=== PATIENT | male | born 1990 | race Caucasian/White ===

== ENCOUNTER 2018-08-24 06:35 | Emergency (ER) | payer SELFPAY ==
[2018-08-24] MEDS ORDERED: Sodium Chloride 0.9% 1,000 ML IV STA (07:14)
[2018-08-24] MEDS ORDERED: Lidocaine 1% Inj (20ml) SC STA (07:14)
[2018-08-24 07:18] VITALS: RESP 18; TEMP 97.6
--- NOTE | 2018-08-24 07:18 | ED PDOC ---
Arrival/HPI - General Chief Complaint: Finger,Hand,&Wrist Time Seen by Provider: 08/24/18 07:05 Historian: Patient - History of Present Illness Narrative History of Present Illness (Text): 08/24/18 07:10 A 27 year old male, whose past medical history includes type 2 diabetes (diet controlled, noncompliant with Metformin), presents to the emergency department complaining of left thumb pain since 1 1/2 week ago. Patient reports he noticed pain his left hand almost 2 weeks ago and went to [facility] for symptoms on August 18. Patient states he was prescribed antibiotics, Bactrim, and was advised to return should symptoms persist. Patient returned to [facility] for persisting symptoms, August 20, and had his left thumb wound was pricked with no pus drainage. He was advised to continue antibiotics and return to the ED if it begins to swell. Patient also notes he was prescribed Metformin around 3 years ago but was unable to obtain it due to his lack of insurance at that time. Patient denies any fever, chills, myalgia, or any other complaints. PMD: None Time/Duration: < week (1 1/2 week) Symptom Onset: Gradual Symptom Course: Unchanged Activities at Onset: Light Context: Home Past Medical History - Provider Review Nursing Documentation Reviewed: Yes - Endocrine/Metabolic Hx Endocrine Disorders: Yes Hx Diabetes Mellitus Type 2: Yes - Psychiatric Hx Substance Use: No Family/Social History - Physician Review Nursing Documentation Reviewed: Yes Family/Social History: No Known Family HX Smoking Status: Never Smoked Hx Alcohol Use: No Hx Substance Use: No Allergies/Home Meds Allergies/Adverse Reactions: Allergies No Known Allergies Allergy (Verified 08/24/18 06:50) Home Medications: Home Meds Medication Instructions Recorded Confirmed Sulfamethoxazole/Trimethoprim 1 tab PO BID 08/24/18 08/24/18 [Bactrim DS 800 mg-160 mg] Review of Systems - Physician Review All systems were reviewed & negative as marked: Yes - Review of Systems Constitutional: absent: Fevers, Other (chills) Musculoskeletal: Other (left thumb pain). absent: Myalgias Physical Exam Vital Signs Reviewed: Yes Vital Signs Temp Pulse Resp BP Pulse Ox 08/24/18 06:51 97.6 F 95 H 18 136/87 98 Temperature: Afebrile Blood Pressure: Normal Pulse: Regular Respiratory Rate: Normal Appearance: Positive for: Well-Appearing, Non-Toxic Pain Distress: Mild Mental Status: Positive for: Alert and Oriented X 3 Finger Stick Blood Glucose: 370 - Systems Exam Head: Present: Atraumatic, Normocephalic Pupils: Present: PERRL Extroacular Muscles: Present: EOMI Conjunctiva: Present: Normal Respiratory/Chest: Present: Clear to Auscultation, Good Air Exchange. No: Respiratory Distress, Accessory Muscle Use Cardiovascular: Present: Tachycardic Abdomen: No: Tenderness, Distention, Peritoneal Signs Upper Extremity: Present: NORMAL PULSES, Swelling (Swelling to left thumb), E rythema (erythema to left thumb), Other (Paronychia on left thumb, pus noted, fluctuant, no streaking, no axonal polyneuropathy) Lower Extremity: Present: Normal Inspection. No: Edema Neurological: Present: GCS=15, CN II-XII Intact, Speech Normal, Motor Func Grossly Intact, Normal Sensory Function Skin: Present: Warm, Dry, Normal Color. No: Rashes Psychiatric: Present: Alert, Oriented x 3, Normal Insight, Normal Concentration Medical Decision Making ED Course and Treatment: 08/24/18 07:15 Impression: 27 year old male presenting to the emergency room complaining of left thumb pain Dx: Paronychia Plan: -- BMP -- Magnesium -- CBC -- Lidocaine 1% -- IV fluids -- Reassess and disposition Progress Notes: 08/24/18 07:20 Procedure: Incision & Drainage of Paronychia with Digit Block Performed by the emergency provider Indication: Abscess Location: Left thumb Preparation: The area was prepped and draped in the usual sterile fashion and was cleansed. Local infiltration of Lidocaine 1% without epi as digit block was used for anesthesia. 2ml of lidocaine without epi used. Procedure: The most fluctuant portion of the abscess was incised with a #12 scalpel. Approximately 1 mL of pus was obtained. The abscess was packed with 1/4 inch iodoform gauze. A dressing was applied by the emergency provider. Post-Procedure: On exam the abscess is notably less fluctuant. The patient tolerated the procedure well, and there were no complications. Cultured: No The patient's hyperglycemia was evaluated with blood work. No evidence of DKA upon review of blood work. Given NS IV 1 Liter for glucose with improvement. See Finger sticks noted. Patient was given education on diabetes and treatment with Metformin. He was given risks if he does not control his glucose levels. He is due for his next dose of Bactrim at 12 and has the medications with him so he will take them as scheduled. I gave him additional 7 days of treatment with Bactrim since the finger was improving on this treatment. The I&D plus bactrim will complete the treatment. He needs to return to the ED 2 days from now for a wound check. He was advised to return sooner if symptoms worsen, fever, redness develops on his arm or any other concern. - Scribe Statement The provider has reviewed the documentation as recorded by the Alie Chávez All medical record entries made by the Scribe were at my direction and personally dictated by me. I have reviewed the chart and agree that the record accurately reflects my personal performance of the history, physical exam, medical decision making, and the department course for this patient. I have also personally directed, reviewed, and agree with the discharge instructions and disposition. Disposition/Present on Arrival - Present on Arrival Any Indicators Present on Arrival: Yes History of DVT/PE: No History of Uncontrolled Diabetes: Yes Urinary Catheter: No History of Decub. Ulcer: No History Surgical Site Infection Following: None - Disposition Have Diagnosis and Disposition been Completed?: Yes Diagnosis: Paronychia, Hyperglycemia Disposition: HOME/ ROUTINE Disposition Time: 09:05 Patient Plan: Discharge Condition: IMPROVED Discharge Instructions (ExitCare): Paronychia, Hyperglycemia, Adult Additional Instructions: PAULO ALBARRAN, thank you for letting us take care of you today. Your provider was Juan M Morrissey DO and you were treated for Left Thumb Paronychia, Diabetes/Hyperglycemia. The emergency medical care you received today was directed at your acute symptoms. If you were prescribed any medication, please fill it and take as directed. It may take several days for your symptoms to resolve. Return to the Emergency Department if your symptoms worsen, do not improve, or if you have any other problems. PLEASE RETURN TO THE EMERGENCY DEPARTMENT IN 2 DAYS FOR A WOUND CHECK. CONTINUE TO TAKE YOUR ANTIBIOTICS PRESCRIBED AND ADDITIONAL ANTIBIOTICS PRESCRIBED BY ME. Please contact your doctor or call one of the physicians/clinics you have been referred to that are listed on the Patient Visit Information form that is included in your discharge packet. Bring any paperwork you were given at discharge with you along with any medications you are taking to your follow up visit. Our treatment cannot replace ongoing medical care by a primary care provider outside of the emergency department. Thank you for allowing the [facility] team to be part of your care today. If you had an X-Ray or CT scan: A Radiologist will review the ED reading if any change in treatment is needed we will contact you. If you had a blood, urine, or wound culture: It will take several days for the results, if any change in treatment is needed we will contact you. If you had an STI test: It will take 48 hours for the results. Please call after 1 week if you have not heard back. Prescriptions: metFORMIN [glucOPHAGE] 500 mg PO BID #30 tab Sulfamethoxazole/Trimethoprim [Bactrim DS 800 mg-160 mg] 1 tab PO Q12 #14 tab Referrals: Myrna Pinto MD [Non-Staff] - Follow up with primary Forms: [employer] ([place]), WORK NOTE
[2018-08-24] MEDS ORDERED: Bacitracin 500 Units/gm Oint Foilpak UD ONE (07:35)
[2018-08-24 07:53] LABS: BASO # 0.01 K/mm3 (0.0-2.0); BASO % 0.2 % (0.0-3.0); EOS # 0.1 (0.0-0.7); EOS % 1.9 % (1.5-5.0); HEMOGLOBIN 16.3 g/dL (14.0-18.0); LYMPH # 2.5 (1.2-3.4); LYMPH % 52.5 % (22.0-35.0); MEAN CELL VOLUME 79.6 fl (80.0-105.0); MEAN CORPUSCULAR HGB CONC 35.2 g/dl (31.0-37.0); MEAN PLATELET VOLUME 10.7 fl (7.0-11.0); MONO # 0.3 (0.1-0.6); MONO % 5.7 % (1.0-6.0); RBC 5.82 10^6/uL (3.5-6.1); RED CELL DISTRIBUTION WIDTH 12.7 % (11.5-14.5); WHITE BLOOD COUNT 4.8 10^3/uL (4.5-11.0)
[2018-08-24 08:39] LABS: BLOOD UREA NITROGEN 17 mg/dL (7-21); CALCIUM 9.1 mg/dL (8.4-10.5); GFR NON-AFRICAN AMERICAN > 60
[2018-08-24 09:07] VITALS: BP 135/74; PULSE 88; O2SAT 99
== END 2018-08-24 09:06 | disposition home or self-care (01) ==
LOC: ED 06:35 → MERGE 06:35 → ED 09:06
DX: L03.012 Cellulitis of left finger (principal); E11.65 Type 2 diabetes mellitus with hyperglycemia
CPT/HCPCS: 10060; 80048; 82948; 83735; 85025; 96372; 99283; J7030